=== PATIENT | female | born 1985 | race Caucasian/White ===

== ENCOUNTER 2016-08-19 18:49 | Emergency (ER) | payer OTHER ==
--- NOTE | ~2016-08-19 | CR21 ---
[facility]. [facility] A Service of [facility] & [facility] RADIOLOGY TEXT RESULTS PATIENT: SOHEILA AC LOCATION: SED : 85 UNIT #: [id number] AGE: [address]: ROAYL BERRIOS SEX: F ORDER DR: [id number] [place] [id number] E MR#: [id number] Acc #: [id number] NAME: SOHEILA AC : 1985 SEX: F STUDY DATE/TIME: 08/19/2016 19:27 UNIT: SED ROOM: STUDY DESCRIPTION: CR Ankle Min 3 Views Rt Attending Physician: Royal Berrios Ordering Physician: Physician Non-Staff Primary Care Physician: Primary Care Physician No MEDICAL IMAGING REPORT This report is preliminary unless electronic signature is present. EXAM Right ankle 08/19/2016 INDICATION Ankle pain after falling while [place] in [place]. FINDINGS Three views of the ankle were obtained. There is no fracture or malalignment. The mortise is intact. IMPRESSION Negative right ankle. Dictated by... Chavez Bartlett Jr., M.D. THIS IS AN ELECTRONICALLY VERIFIED REPORT Chavez Bartlett Jr., M.D. at 08/21/2016 7:35 AM MERCEDEZ/christine TD: 08/20/2016 06:28 JOB #: [id number] MEDICAL IMAGING REPORT Page 1 of 1
[~2016-08-19 18:49] MED LIST: METRONIDAZOLE PO; MONODOX100 MG PO; NO MEDICATIONS; PERCOCET5/325 PO; PHENERGAN PO; PHENERGAN25 MG PO; PROTONIX PO; VOLTAREN50 MG PO; [UNRECOGNIZED DRUG - MIXTURE]
== END 2016-08-19 20:05 | disposition home or self-care (01) ==
LOC: SED 18:49
DX: S93.401A Sprain of unspecified ligament of right ankle, initial encounter (principal); F17.210 Nicotine dependence, cigarettes, uncomplicated; Z88.5 Allergy status to narcotic agent; W01.0XXA Fall on same level from slipping, tripping and stumbling without subsequent striking against object, initial encounter; Y93.01 Activity, walking, marching and hiking; Y92.830 Public park as the place of occurrence of the external cause
CPT/HCPCS: 29540; 73610; 99283